=== PATIENT | male | born 1990 | race Caucasian/White ===

== ENCOUNTER 2023-01-14 17:48 | Emergency (ER) | payer OTHER ==
[~2023-01-14] VITALS: Ht 180.3 cm; Wt 100.3 kg
[2023-01-14] MEDS ORDERED: INSLANTI SC (19:15)
[2023-01-14 19:34] LABS: Urine Bacteria NONE SEEN /hpf (None Seen); Urine Blood Negative /uL (Negative); Urine Clarity Clear (Clear); Urine Color Colorless (Yellow); Urine Protein, UAD 1+ (Negative); Urine Specific Gravity 1.021 (1.001-1.035); Urine Urobilinogen Normal (Negative); Urine WBC <1 /hpf (0 - 3); Urine pH 5.5 (5.0-8.0)
[2023-01-14 20:19] VITALS: BP 144/90; PULSE 94; RESP 19; TEMP 98.3; O2SAT 95
== END 2023-01-14 20:21 | disposition home or self-care (01) ==
LOC: ER 17:48
DX: E11.65 Type 2 diabetes mellitus with hyperglycemia (principal); Z76.0 Encounter for issue of repeat prescription
CPT/HCPCS: 81001

== ENCOUNTER 2023-05-01 12:32 | Inpatient (IN) | payer MEDICAID ==
[~2023-05-01] VITALS: Ht 175.3 cm; Wt 100.0 kg
[~2023-05-01 12:32] MED LIST: INSLANTI SC
[2023-05-01 13:49] LABS: Alanine Aminotransferase 21 U/L (7-40); Albumin 4.5 g/dL (3.2-4.8); Alkaline Phosphatase 59 U/L (46-116); Anion Gap 5 (5-15); Aspartate Aminotransferase 16 U/L (13-40); BUN/Creatinine Ratio 11.1 (10.0-20.0); Bilirubin, Total 1.2 mg/dL (0.2-1.0); Blood Urea Nitrogen 13 mg/dL (9-23); Calcium 9.6 mg/dL (8.7-10.4); Carbon Dioxide 29 mmol/L (20-30); Chloride 102 mmol/L (98-107); Glucose 277 mg/dL (74-106); Lipase 31 U/L (12-53); Potassium 4.6 mmol/L (3.5-5.1); Sodium 136 mmol/L (136-145); Total Protein 7.4 g/dL (5.7-8.2)
[2023-05-01 13:50] LABS: Basophils # (auto) 0.1 10 ^3/uL (0-0.2); Basophils % (auto) 0.6 % (0.0-2.0); Eosinophils # (auto) 0.3 10 ^3/uL (0-0.8); Eosinophils % (auto) 2.5 % (0.0-7.0); Hematocrit 43.8 % (41.0-53.0); Hemoglobin 14.7 g/dL (13.5-17.5); Lymphocytes # (auto) 1.1 10 ^3/uL (0.4-5.4); Lymphocytes % (auto) 10.7 % (10.0-50.0); Mean Corpuscular Hemoglobin 29.8 pg (28.0-32.0); Mean Corpuscular Hgb Conc. 33.6 g/dL (32.0-36.0); Mean Corpuscular Volume 88.7 fL (80.0-100.0); Monocytes # (auto) 0.7 10 ^3/uL (0-1.3); Monocytes % (auto) 6.2 % (0.0-12.0); Neutrophils # (auto) 8.5 10 ^3/uL (1.6-8.6); Red Blood Cells 4.94 10^6/uL (4.5-5.90); Red Cell Distribution Width 13.5 % (11.8-14.3); White Blood Cell 10.6 10^3/uL (4.4-10.8)
[2023-05-01 14:04] LABS: INR 0.97 (0.9-1.15); Partial Thromboplastin Time 27.1 SEC (24.5-34.5); Prothrombin Time 10.2 sec (9.3-11.8)
[2023-05-01 14:14] LABS: Urine Bacteria NONE SEEN /hpf (None Seen); Urine Blood TRACE /uL (Negative); Urine Clarity Clear (Clear); Urine Color Yellow (Yellow); Urine Protein, UAD 2+ (Negative); Urine Specific Gravity 1.028 (1.001-1.035); Urine Urobilinogen Normal (Negative); Urine WBC <1 /hpf (0 - 3); Urine pH 6.5 (5.0-8.0)
[2023-05-01] MEDS: IOHEXOL 300 MG/ML 100ML BOTTLE IJ ONE (14:18)
[2023-05-01 14:26] LABS: Amphetamine Screen, Urine Neg (NEGATIVE)
[2023-05-01 14:27] LABS: Barbiturate Scree,Urine Neg (NEGATIVE); Benzodiazephine Screen, Urine Neg (NEGATIVE); Cannabinoid Screen, Urine Neg (NEGATIVE); Cocaine Screen, Urine Neg (NEGATIVE); Opiate Scree,Urine Neg (NEGATIVE); Phencyclidine Screen, Urine Neg (NEGATIVE)
[2023-05-01] MEDS: SODIUM CHLORIDE 0.9% 1,000 ML IV ONE (14:39)
[2023-05-01] MEDS: SODIUM CHLORIDE 0.9% 500 ML IVB ONE (14:40)
[2023-05-01] MEDS: METOCLOPRAMIDE HCL 5MG/ml INJ 2ml VIAL IV ONE (14:44)
[2023-05-01] MEDS: HYDROmorphone HCL 2 MG/ML VL/or syr IV ONE (14:45)
[2023-05-01] MEDS: cefTRIAXone 1GM/50ML D5W 50 ML IV ONE (15:30)
[2023-05-01] MEDS: metroNIDAZOLE 500MG/100ML 100 ML IV ONE (15:30)
[2023-05-01] MEDS ORDERED: MORPHINE SULFATE INJ 2 MG/ml SYRG IV PRN (15:45)
[2023-05-01] MEDS ORDERED: SODIUM CHLORIDE 0.9% 1,000 ML IV SCH (15:45)
[2023-05-01] MEDS ORDERED: DEXTROSE (50%) 50ML SYRG IV PRN (15:45)
[2023-05-01] MEDS: PANTOPRAZOLE 40 MG/10 ML VIAL INJ IV ONE (15:54)
[2023-05-01] MEDS: ONDANSETRON HCL 4 MG/2 ML VIAL IV PRN (15:54)
[2023-05-01] MEDS: InsuLIN REG 1unit/0.01ml Soln (100units/ml) SC SCH (17:00)
[2023-05-01] MEDS: ACCU-CHEK COMFORT CURVE STRIP VI SCH (17:00)
[2023-05-01 19:30] VITALS: PULSE 86; RESP 14; O2SAT 98
[2023-05-01 21:19] LABS: INR 1.01 (0.9-1.15); Prothrombin Time 10.6 sec (9.3-11.8)
[2023-05-01] MEDS: metroNIDAZOLE 500MG/100ML 100 ML IV SCH (21:55)
[2023-05-01 22:32] VITALS: BP 121/67; PULSE 74; RESP 18; TEMP 99.1; O2SAT 96
[2023-05-01 23:13] VITALS: BP 121/67; PULSE 74; RESP 18; TEMP 99.1; O2SAT 95
[2023-05-02] VITALS (7 sets, daily range): BP systolic 108–121; BP diastolic 56–73; PULSE 72–76; RESP 16–19; TEMP 97.7–98.6; O2SAT 0–100
[2023-05-02] MEDS: SUCCINYLCHOLINE CHLORIDE 20 MG/ML 10ML VIAL IV ONE (07:15)
[2023-05-02] MEDS ORDERED: MIDAZOLAM HCL 2MG/2ML 2ml VIAL (1mg/ml) ONE (07:18)
[2023-05-02] MEDS ORDERED: fentaNYL CITRATE 100 MCG/2 ML VL ONE (07:18)
[2023-05-02] MEDS ORDERED: MEPERIDINE HCL (50 MG/ML) 1 ML VIAL ONE (07:18)
[2023-05-02] MEDS: BUPIVACAINE 0.25% INJ 50ML VIAL ONE (07:50)
[2023-05-02] MEDS: LIDOCAINE W/ EPINEPHRINE 1% 20ML VIAL ONE (07:50)
[2023-05-02] MEDS ORDERED: DexAMETHasone SOD PHOS 10MG/1ML VIAL INJ ONE (07:54)
[2023-05-02] MEDS ORDERED: PROPOFOL 10 MG/ML 20 ML IV ONE (07:54)
[2023-05-02] MEDS ORDERED: ROCURONIUM 10MG/ML 10ML VIAL IV ONE (07:54)
[2023-05-02] MEDS: cefTRIAXone 1GM/50ML D5W 50 ML IV SCH (09:00)
[2023-05-02 09:16] LABS: Basophils # (auto) 0 10 ^3/uL (0-0.2); Basophils % (auto) 0.2 % (0.0-2.0); Eosinophils # (auto) 0.2 10 ^3/uL (0-0.8); Eosinophils % (auto) 1.9 % (0.0-7.0); Lymphocytes # (auto) 0.7 10 ^3/uL (0.4-5.4); Lymphocytes % (auto) 5.4 % (10.0-50.0); Mean Corpuscular Hgb Conc. 33.3 g/dL (32.0-36.0); Mean Corpuscular Volume 90.1 fL (80.0-100.0); Monocytes # (auto) 0.5 10 ^3/uL (0-1.3); Monocytes % (auto) 3.9 % (0.0-12.0); Neutrophils # (auto) 11.9 10 ^3/uL (1.6-8.6); Neutrophils % (auto) 88.6 % (37.0-80.0); Red Blood Cells 4.33 10^6/uL (4.5-5.90); Red Cell Distribution Width 13.3 % (11.8-14.3); White Blood Cell 13.4 10^3/uL (4.4-10.8)
[2023-05-02 09:32] LABS: Alanine Aminotransferase 15 U/L (7-40); Albumin 3.6 g/dL (3.2-4.8); Alkaline Phosphatase 48 U/L (46-116); Anion Gap 5 (5-15); Aspartate Aminotransferase < 8 U/L (13-40); BUN/Creatinine Ratio 13.1 (10.0-20.0); Blood Urea Nitrogen 13 mg/dL (9-23); Calcium 8.8 mg/dL (8.5-10.1); Carbon Dioxide 25 mmol/L (20-30); Chloride 105 mmol/L (98-107); Glucose 255 mg/dL (74-106); Potassium 4.4 mmol/L (3.5-5.1); Sodium 135 mmol/L (136-145)
[2023-05-02 09:33] LABS: Total Protein 5.8 g/dL (5.7-8.2)
[2023-05-02] MEDS: ceFAZolin 2 GM/D5W100ml 100 ML IV ONE (10:00)
[2023-05-02] MEDS: PANTOPRAZOLE 40 MG/10 ML VIAL INJ IV SCH (10:38)
[2023-05-02] MEDS: SODIUM CHLORIDE 0.9% 1,000 ML IV SCH (13:00)
[2023-05-02] MEDS: ACETAMINOPHEN 325 MG TAB PO PRN (22:14)
[2023-05-02] MEDS: INSULIN LANTUS (GLARGINE) 1 /0.01ml (100units/ml) SC SCH (22:17)
[2023-05-03 05:00] VITALS: BP 115/48; PULSE 76; RESP 16; TEMP 98.1; O2SAT 96
[2023-05-03 08:00] VITALS: O2SAT 98
[2023-05-03 08:14] LABS: Chloride 106 mmol/L (98-107); Potassium 4.4 mmol/L (3.5-5.1); Sodium 136 mmol/L (136-145)
[2023-05-03 08:15] LABS: Anion Gap 5 (5-15); Calcium 8.9 mg/dL (8.5-10.1); Carbon Dioxide 25 mmol/L (20-30)
[2023-05-03 08:20] LABS: BUN/Creatinine Ratio 16.3 (10.0-20.0); Blood Urea Nitrogen 15 mg/dL (9-23); Glucose 223 mg/dL (74-106)
[2023-05-03 08:22] LABS: Basophils # (auto) 0 10 ^3/uL (0-0.2); Basophils % (auto) 0.4 % (0.0-2.0); Eosinophils # (auto) 0.1 10 ^3/uL (0-0.8); Eosinophils % (auto) 1.5 % (0.0-7.0); Hematocrit 40.5 % (41.0-53.0); Hemoglobin 13.5 g/dL (13.5-17.5); Lymphocytes # (auto) 0.8 10 ^3/uL (0.4-5.4); Lymphocytes % (auto) 10.1 % (10.0-50.0); Mean Corpuscular Hemoglobin 30.1 pg (28.0-32.0); Mean Corpuscular Hgb Conc. 33.3 g/dL (32.0-36.0); Mean Corpuscular Volume 90.3 fL (80.0-100.0); Monocytes # (auto) 0.7 10 ^3/uL (0-1.3); Monocytes % (auto) 8.5 % (0.0-12.0); Neutrophils # (auto) 6.2 10 ^3/uL (1.6-8.6); Neutrophils % (auto) 79.5 % (37.0-80.0); Red Blood Cells 4.49 10^6/uL (4.5-5.90); Red Cell Distribution Width 13.3 % (11.8-14.3); White Blood Cell 7.8 10^3/uL (4.4-10.8)
[2023-05-03 12:57] VITALS: BP 118/60; PULSE 77; RESP 15; TEMP 98.9; O2SAT 100
[2023-05-03 17:09] VITALS: BP 135/83; PULSE 78; RESP 15; TEMP 98.4; O2SAT 97
[2023-05-03 21:53] VITALS: BP 152/95; PULSE 78; RESP 18; TEMP 98.2; O2SAT 95
[2023-05-04 05:27] VITALS: BP 121/57; PULSE 65; RESP 18; TEMP 97.5; O2SAT 94
[2023-05-04 07:26] LABS: Basophils # (auto) 0.1 10 ^3/uL (0-0.2); Basophils % (auto) 1.2 % (0.0-2.0); Eosinophils # (auto) 0.2 10 ^3/uL (0-0.8); Hematocrit 38.2 % (41.0-53.0); Lymphocytes # (auto) 1.2 10 ^3/uL (0.4-5.4); Lymphocytes % (auto) 28.9 % (10.0-50.0); Mean Corpuscular Hemoglobin 30.6 pg (28.0-32.0); Mean Corpuscular Hgb Conc. 33.9 g/dL (32.0-36.0); Mean Corpuscular Volume 90.2 fL (80.0-100.0); Monocytes # (auto) 0.7 10 ^3/uL (0-1.3); Monocytes % (auto) 17.2 % (0.0-12.0); Neutrophils # (auto) 2.1 10 ^3/uL (1.6-8.6); Neutrophils % (auto) 47.7 % (37.0-80.0); Red Blood Cells 4.24 10^6/uL (4.5-5.90); Red Cell Distribution Width 13.4 % (11.8-14.3); White Blood Cell 4.3 10^3/uL (4.4-10.8)
[2023-05-04 07:47] LABS: Anion Gap 5 (5-15); Carbon Dioxide 27 mmol/L (20-30); Chloride 108 mmol/L (98-107); Potassium 3.8 mmol/L (3.5-5.1); Sodium 140 mmol/L (136-145)
[2023-05-04 07:49] LABS: Calcium 8.4 mg/dL (8.5-10.1)
[2023-05-04 07:53] LABS: BUN/Creatinine Ratio 14.4 (10.0-20.0); Blood Urea Nitrogen 13 mg/dL (9-23); Glucose 232 mg/dL (74-106)
[2023-05-04 08:00] VITALS: BP 140/92; PULSE 81; RESP 20; TEMP 97.9; O2SAT 99
[2023-05-04] MEDS ORDERED: LEVO500T91 PO (08:40)
[2023-05-04 09:00] VITALS: BP 149/104; PULSE 87; RESP 20; TEMP 97.9; O2SAT 99
[2023-05-04 11:13] VITALS: BP 140/92; PULSE 81; RESP 20; TEMP 97.9; O2SAT 99
== END 2023-05-04 11:50 | disposition home or self-care (01) | DRG 234 ==
LOC: ER 12:32 → OVERFLOW 15:42 → WEST WING 22:08
PROVIDERS: ADMIT Internal Medicine; ATTEND Internal Medicine
PROC: 0DTJ4ZZ Resection of Appendix, Percutaneous Endoscopic Approach (ICD-10-PCS; principal; 2023-05-02 07:24)
DX: K35.80 Unspecified acute appendicitis (principal); E11.65 Type 2 diabetes mellitus with hyperglycemia; E66.9 Obesity, unspecified; Z68.32 Body mass index [BMI] 32.0-32.9, adult; Z79.4 Long term (current) use of insulin
CPT/HCPCS: 36415; 71046; 74177; 80048; 80053; 80307; 81001; 82962; 83036; 83690; 83735; 85025; 85610; 85730; 86850; 86900; 86901; C9113; G0378; J0330; J1100; J1815; J2250; J2405; J2704; J3490

== ENCOUNTER 2024-04-07 10:51 | Emergency (ER) | payer MEDICAID ==
[~2024-04-07] VITALS: Ht 180.3 cm; Wt 88.8 kg
[~2024-04-07 10:51] MED LIST changes: +LEVO500T91 PO
[2024-04-07 12:56] VITALS: BP 138/86; PULSE 87; RESP 14; TEMP 97.5; O2SAT 99
--- NOTE | 2024-04-07 13:11 | ED.PDOC ---
History of Present Illness(SKN HPI Comments A 34 YEAR OLD MALE PRESENTS TO THE ED WITH COMPLAINT OF REDNESS IN BETWEEN LEFT 4TH AND 5TH TOES. PATIENT STATES HE HAS BEEN EXPERIENCING REDNESS, PAIN, AND A MILD BLISTER IN BETWEEN HIS 4TH AND 5TH TOES OF HIS LEFT FOOT. PATIENT NOTES THAT HE IS DIABETIC. PATIENT DENIES FEVER, CHILLS, SHORTNESS OF BREATH, CHEST PAIN, ABDOMINAL PAIN, NAUSEA, VOMITING, HEADACHE, OR OTHER COMPLAINTS. NO OTHER SYMPTOMS OR MODIFYING FACTORS AT THIS TIME. PATIENT IS ALERT, ORIENTED X 4, AND HAS STEADY GAIT. Chief Complaint: Wound Check Time Seen by MD: 11:16 Primary Care Provider: [facility] History of Present Illness: Nurses Notes, Medications, Allergies Allergies: Coded Allergies: NO KNOWN ALLERGIES (Unverified , 01/14/23) Home Meds Active Scripts Naproxen (Naproxen) 500 Mg Tab, 500 MG PO BID, #30 TAB Prov:RAYMON PINEDA 04/07/24 Cephalexin Monohydrate (Cephalexin) 500 Mg Cap, 1 CAP PO QID, #40 CAP Prov:RAYMON PINEDA 04/07/24 Levofloxacin Hemihydrate (LEVOFLOXACIN) 500 Mg Tab, 1 TAB PO DAILY for 7 Days, #7 TAB Prov:CLAUDIA CRISTOBAL RESIDENT 05/04/23 Insulin Glargine (Lantus) 100 Unit/Ml Inj, 100 UNIT SC DAILY, #5 ML Prov:MADELYN HOLCOMB PAC 01/14/23 Information Source: Patient Mode of Arrival: Ambulatory Severity: Moderate Timing: Days Duration: Since onset, Days Prehospital treatment: None Location: Foot (FOOT) Mechanism: Spontaneous Onset Occurence: Indoors Object: None Condition of Object: None Retained Foreign Body: No Wound Type: Other (BLISTER) Immunization Status of Animal: NA Tetanus: Unknown History of: None Associated Signs and Symptoms: Redness, Pain Past Medical History PAST MEDICAL HISTORY: DM Surgical History: Denies all surgeries Family History Family History: Reviewed,noncontributory to illness, No family hx of Cancer, No family hx of DM, No family hx of Heart troy, No family hx of HTN, No family hx ofKidney troy, No family hx of Liver troy, No family hx of Lung troy, No family hx of Stroke Social History Smoker: Non-Smoker Alcohol: Denies ETOH Use Drugs: Denies Drug Use Lives In: Home Constitutional: denies: chills, diaphoresis, fatigue, fever, malaise, sweats, weakness, others EENTM: denies: blurred vision, double vision, ear bleeding, ear discharge, ear drainage, ear pain, ear ringing, eye pain, eye redness, hearing loss, mouth pain, mouth swelling, nasal discharge, nose bleeding, nose congestion, nose pain, photophobia, tearing, throat pain, throat swelling, voice changes, others Respiratory: denies: cough, hemoptysis, orthopnea, SOB at rest, shortness of breath, SOB with excertion, stridor, wheezing, others Cardiovascular: denies: chest pain, dizzy spells, diaphoresis, Dyspnea on exertion, edema, irregular heart beat, left arm pain, lightheadedness, palpitations, PND, syncope, others Gastrointestinal: denies: abdomen distended, abdominal pain, blood streaked bowels, constipated, diarrhea, dysphagia, difficulty swallowing, hematemesis, melena, nausea, poor appetite, poor fluid intake, rectal bleeding, rectal pain, vomiting, others Genitourinary: denies: burning, dysuria, flank pain, frequency, hematuria, incontinence, penile discharge, penile sore, pain, testicle pain, testicle swelling, urgency, others Neurological: denies: dizziness, fainting, headache, left sided numbness, left sided weakness, numbness, paresthesia, pre-existing deficit, right sided numbness, right sided weakness, seizure, speech problems, tingling, tremors, weakness, others Musculoskeletal: denies: back pain, gout, joint pain, joint swelling, muscle pain, muscle stiffness, neck pain, others Integumetry: reports: rash (LEFT FOOT ), others (TINEA PEDIS OF LEFT 4TH AND 5TH TOES); denies: bruises, change in color, change in hair/nails, dryness, laceration, lesions, lumps, wounds Allergic/Immunocompromised: denies: Difficulty Healing, Frequent Infections, Hives, Itching, others Hematologic/Lymphatic: denies: anemia, blood clots, easy bleeding, easy bruising, swollen glands, others Endocrine: denies: excessive hunger, excessive sweating, excessive thirst, excessive urination, flushing, intolerance to cold, intolerance to heat, unexplained weight gain, unexplained weight loss, others Psychiatric: denies: anxiety, bipolar disorder, depression, hopeless, panic disorder, schizophrenia, sleepless, suicidal, others All Other Systems: Reviewed and Negative Physical Exam General Appearance: No Apparent Distress, Normal HEENT: Normal ENT Inspection, PERRL/EOMI, Pharynx Normal, TMs Normal Neck: Full Range of Motion, Non-Tender, Normal, Normal Inspection Respiratory: Chest Non-Tender, Lungs Clear, No Accessory Muscle Use, No Respiratory Distress, Normal Breath Sounds Cardiovascular: No Edema, No JVD, No Murmur, No Gallop, Normal Peripheral Pul ses, Regular Rate/Rhythm Breast Exam: Deferred Gastrointestinal: No Organomegaly, Non Tender, No Pulsatile Mass, Normal Bowel Sounds, Soft Genitalia: Deferred Pelvic: Deferred Rectal: Deferred Extremities: No calf tenderness, Normal capillary refill, Normal range of motion, No pedal edema, Tender (WITH LOCALIZED REDNESS AND SWELLING ON LEFT 4TH AND 5TH TOES, MILD WHITE THICKENING SKIN RASH BETWEEN LEFT 4TH AND 5HT TOES REGION. ) Musculoskeletal : Apperance: Normal Neurologic: Alert, gravel weigher II-XII nml as Tested, No Motor Deficits, Normal Affect, Normal Mood, No Sensory Deficits Cerebellar Function: Normal Reflexes: Normal Skin: Dry, Rash (WITH REDNESS AND SWELLING ON LEFT DORSAL FOOT AND LEFT 4TH/5TH TOES REGION, NO OPEN WOUND SEEN. ), Warm Peripheral Pulses: 2+ carotid (R), 2+ carotid (L), 2+ dorsalis pedis (R), 2+ dorsalis pedis (L) Lymphatic: No Adenopathy Was a procedure done? Was a procedure done?: No Differential Diagnosis (INTG) Differential Diagnosis: N/A Differential Diagnosis: Atopic dermatitis, Cellulitis, Contact Dermatitis, Erysipelas, Tinea, Urticaria Differential Diagnosis: N/A Abscess: N/A Differential Diagnosis: N/A X-Ray, Labs, Meds, VS Vital Signs Date Time Temp Pulse Resp B/P (MAP) Pulse Ox O2 Delivery O2 Flow Rate FiO2 04/07/24 12:56 97.5 87 14 138/86 (103) 99 97.5 04/07/24 12:56 87 14 99 Room Air 04/07/24 11:24 97.5 87 14 138/86 (103) 99 Lab Test 04/07/24 11:34 Range/Units POC Glucose 222 H 70-106 mg/dl Current Medications Medications (Trade) Dose Ordered Sig/Jennifer Route Start Time Stop Time Status Last Admin Ceftriaxone Sodium (Rocephin) 1,000 mg ONCE ONCE IM 04/07/24 13:15 04/07/24 13:16 DC 04/07/24 13:22 X-Ray, Labs, Meds, VS Comment EXTERNAL MEDICAL RECORDS REVIEWED: [NONE] INDEPENDENT HISTORIANS: [NONE] SOCIAL DETERMINANTS OF HEALTH: [NONE] LABS ORDERED: NONE REVIEWED AND INTERPRETED RESULTS: NONE IMAGING ORDERED: NONE TREATMENTS ORDERED: ROCEPHIN 1GM IM PROCEDURES PERFORMED: NONE CRITICAL CARE TIME: NONE I HAVE DISCUSSED THE PATIENT WITH THE ATTENDING PHYSICIAN DR. FRANCE AND HE AGREES WITH THE PATIENT'S PLAN OF CARE AND DISPOSITION. BASED ON HISTORY OF PRESENT ILLNESS, AND PHYSICAL EXAM, PATIENT WILL BE DISCHARGED HOME. DISCUSSED PLAN FOR DISCHARGE HOME WITH RX [KEFLEX]. MEDICATION WARNINGS GIVEN. SHARED DECISION MAKING: PATIENT INSTRUCTED TO FOLLOW UP WITH PRIMARY CARE PROVIDER IN 1-2 DAYS FOR RE-EVALUATION OF SYMPTOMS. PATIENT VERBALIZES UNDERSTANDING TO RETURN TO ED FOR NEW OR WORSENING SYMPTOMS OR IF FOLLOW UP WITH PCP CANNOT BE OBTAINED. PATIENT FEELS COMFORTABLE GOING HOME AT THIS TIME. ALL QUESTIONS ADDRESSED AT TIME OF DISCHARGE. Time of 1ST Reevaluation: 13:31 Reevaluation 1ST: Improved Patient Education/Counseling: Diagnosis, Treatment, Need For Follow Up Family Education/Counseling: Diagnosis, Treatment, Need For Follow Up Medical Screening: No EMC Exist At This Time Departure 1 Departure Time of Disposition: 13:31 Impression: Primary Impression: Tinea pedis Qualified Codes: B35.3 - Tinea pedis Additional Impression: Suspected soft tissue infection Disposition: 01 HOME / SELF CARE / HOMELESS Condition: Stable Additional Instructions: FOLLOW-UP WITH PCP IN 1 TO 2 DAYS. TAKE MEDICATIONS PRESCRIBED. RETURN TO ED FOR ANY NEW OR WORSENING SYMPTOMS. e-Prescriptions Naproxen (Naproxen) 500 Mg Tab 500 MG PO BID, #30 TAB Prov: RAYMON PINEDA 04/07/24 Cephalexin Monohydrate (Cephalexin) 500 Mg Cap 1 CAP PO QID, #40 CAP Prov: RAYMON PINEDA 04/07/24 Discharged With: Self Critical Care Note Critical Care Time?: No Stability Stability form required: No I personally scribed for RAYMON PINEDA ([email or web address]) on 04/07/24 at 13:11. Electronically submitted by Raffaele Anderson ([email or web address]). RAYMON PINEDA Apr 07, 2024 13:11
[2024-04-07] MEDS ORDERED: KETOROLAC TROMETH 60MG/2ML VIAL IM ONE (13:15)
[2024-04-07] MEDS: cefTRIAXone SOD 1,000 MG VL IM ONE (13:22)
[2024-04-07] MEDS ORDERED: CEPH500C PO (13:25)
[2024-04-07] MEDS ORDERED: NAPR-746 PO (13:25)
== END 2024-04-07 13:30 | disposition home or self-care (01) ==
LOC: ER 10:51
DX: B35.3 Tinea pedis (principal); E11.9 Type 2 diabetes mellitus without complications; Z79.899 Other long term (current) drug therapy
CPT/HCPCS: 82962; 96372; 99283; J0696

== ENCOUNTER 2024-08-02 01:50 | Emergency (ER) | payer MEDICAID ==
[~2024-08-02] VITALS: Ht 175.3 cm; Wt 68.0 kg
[~2024-08-02 01:50] MED LIST changes: +CEPH500C PO; +NAPR-746 PO
[2024-08-02 02:00] VITALS: BP 158/98; RESP 16; TEMP 97.8; O2SAT 98
[2024-08-02] MEDS ORDERED: SODIUM CHLORIDE 0.9% 1,000 ML IVB ONE (02:00)
[2024-08-02] MEDS ORDERED: InsuLIN REG 1unit/0.01ml Soln (100units/ml) SC ONE (02:00)
--- NOTE | 2024-08-02 02:01 | ED.PDOC ---
History of Present Illness HPI Comments 34 y/o M, with a history of DM type I, is BIBA for c/o dizziness and spotted vision after taking 2 out a packet of 4 erectile dysfunction pill, this morning. Patient reports on falling twice, without head injury or LOC. He was found with a blood glucose of 386, initially, on scene; endorses on taking his short-acting insulin, this morning, but has been without his long-acting variant since running out for 2 days. Denies any chest pain, shortness of breath, palpitations, or further associated symptoms. Time Seen by MD: 01:50 Primary Care Provider: [facility] Reviewed Notes: Nurses Notes, Air Brakes Inspector Notes, Medications, Allergies Allergies: Coded Allergies: NO KNOWN ALLERGIES (Unverified , 01/14/23) Home Meds Active Scripts Naproxen (Naproxen) 500 Mg Tab, 500 MG PO BID, #30 TAB Prov:RAYMON PINEDA 04/07/24 Cephalexin Monohydrate (Cephalexin) 500 Mg Cap, 1 CAP PO QID, #40 CAP Prov:RAYMON PINEDA 04/07/24 Levofloxacin Hemihydrate (LEVOFLOXACIN) 500 Mg Tab, 1 TAB PO DAILY for 7 Days, #7 TAB Prov:CLAUDIA CRISTOBAL RESIDENT 05/04/23 Insulin Glargine (Lantus) 100 Unit/Ml Inj, 100 UNIT SC DAILY, #5 ML Prov:MADELYN HOLCOMB PAC 01/14/23 Information Source: Patient, Emergency Med Personnel Mode of Arrival: EMS Severity: Moderate Timing: Minutes Duration: Since onset Prehospital treatment: 12 Lead EKG, Accucheck, Rehabilitation Consultant Past Medical History PAST MEDICAL HISTORY: DM (type I) Surgical History: Denies all surgeries Family History Family History: Reviewed,noncontributory to illness, No family hx of Cancer, No family hx of DM, No family hx of Heart troy, No family hx of HTN, No family hx ofKidney tryo, No family hx of Liver troy, No family hx of Lung troy, No family hx of Stroke Social History Smoker: Non-Smoker Alcohol: Denies ETOH Use Drugs: Denies Drug Use Lives In: Home All Other Systems: Reviewed and Negative (Comprehensive systems review obtained and negative except for what is stated in the HPI.) Physical Exam General Appearance: Mild Distress, Normal HEENT: Normal ENT Inspection, Pharynx Normal, TMs Normal Neck: Full Range of Motion, Non-Tender, Normal, Normal Inspection Respiratory: Chest Non-Tender, Lungs Clear, No Accessory Muscle Use, No Respiratory Distress, Normal Breath Sounds Cardiovascular: No Edema, No JVD, No Murmur, No Gallop, Normal Peripheral Pulses, Regular Rate/Rhythm Breast Exam: Deferred Gastrointestinal: No Organomegaly, Non Tender, No Pulsatile Mass, Normal Bowel Sounds, Soft Genitalia: Deferred Pelvic: Deferred Rectal: Deferred Extremities: No calf tenderness, Normal capillary refill, Normal inspection, Normal range of motion, Non-tender, No pedal edema Musculoskeletal : Apperance: Normal Neurologic: Alert, box repairer II-XII nml as Tested, No Motor Deficits, Normal Affect, Normal Mood, No Sensory Deficits Cerebellar Function: Normal Reflexes: Normal Skin: Dry, Normal Color, Warm Lymphatic: No Adenopathy Was a procedure done? Was a procedure done?: No EKG EKG : Pulse Rate (adult): 99 [place]: Normal Cardiac Rhythm: NSR Block: None Hypertrophy: None ST: Normal Differential Dx Considerations may include: hypertension, medication noncompliant, hyperglycemia, medication adverse effect, among others X-Ray, Labs, Meds, VS Vital Signs Date Time Temp Pulse Resp B/P (MAP) Pulse Ox O2 Delivery O2 Flow Rate FiO2 08/02/24 02:02 99 08/02/24 02:00 97.8 84 16 158/98 (118) 98 97.8 08/02/24 01:52 99 Lab Test 08/02/24 03:09 08/02/24 02:10 08/02/24 02:06 Range/Units Troponin I High Sensitivity 7 7 </=54 ng/L Blood Gas Specimen Type Venous Blood Gas Sample Site Vbg - n/a Blood Gas Patient Temperature 37.0 Arterial Blood Date Drawn [id number] Iraj Test N/a Venous Blood pH 7.411 7.320-7.430 Venous Blood pCO2 at Patient Temp 36.8 L 38.0-54.0 mmHg Venous Blood pO2 at Patient Temp 57.4 H 23.0-48.0 mmHg Venous Blood HCO3 22.9 22.0-29.0 mmol/L Venous Bld O2 Saturation (Measured) 88.2 H 60.0-85.0 % Venous Blood Base Excess -1.3 -2.0-3.0 mmol/L Venous Blood Total Hemoglobin 14.1 13.5-17.5 g/dL Venous Blood Oxyhemoglobin 87.8 H 0.0-79.0 % Venous Blood Carboxyhemoglobin 0.2 L 0.5-1.5 % Venous Blood Methemoglobin 0.3 0.0-1.5 % Blood Gas Modality Room air FiO2 % 21.0 White Blood Count 7.5 4.4-10.8 10^3/uL Red Blood Count 4.67 4.5-5.90 10^6/uL Hemoglobin 13.8 13.5-17.5 g/dL Hematocrit 40.2 L 41.0-53.0 % Mean Corpuscular Volume 86.3 80.0-100.0 fL Mean Corpuscular Hemoglobin 29.5 28.0-32.0 pg Mean Corpuscular Hemoglobin Concent 34.2 32.0-36.0 g/dL Red Cell Distribution Width 13.7 11.8-14.3 % Platelet Count 337 140-450 10^3/uL Mean Platelet Volume 7.6 6.9-10.8 fL Neutrophils (%) (Auto) 59.1 37.0-80.0 % Lymphocytes (%) (Auto) 24.2 10.0-50.0 % Monocytes (%) (Auto) 10.6 0.0-12.0 % Eosinophils (%) (Auto) 5.0 0.0-7.0 % Basophils (%) (Auto) 1.1 0.0-2.0 % Neutrophils # (Auto) 4.5 1.6-8.6 10 ^3/uL Lymphocytes # (Auto) 1.8 0.4-5.4 10 ^3/uL Monocytes # (Auto) 0.8 0-1.3 10 ^3/uL Eosinophils # (Auto) 0.4 0-0.8 10 ^3/uL Basophils # (Auto) 0.1 0-0.2 10 ^3/uL Nucleated Red Blood Cells 0.2 % Sodium Level 135 L 136-145 mmol/L Potassium Level 4.1 3.5-5.1 mmol/L Chloride Level 101 98-107 mmol/L Carbon Dioxide Level 25 20-31 mmol/L Anion Gap 9 5-15 Blood Urea Nitrogen 24 H 9-23 mg/dL Creatinine 1.17 0.700-1.30 mg/dL Glomerular Filtration Rate Calc 83 >90 mL/min BUN/Creatinine Ratio 20.5 H 10.0-20.0 Serum Glucose 414 *H 74-106 mg/dL Calcium Level 9.3 8.7-10.4 mg/dL Magnesium Level 2.5 1.6-2.6 mg/dL Total Bilirubin 0.5 0.2-1.0 mg/dL Aspartate Amino Transferase (AST) 24 13-40 U/L Alanine Aminotransferase (ALT) 30 7-40 U/L Alkaline Phosphatase 68 46-116 U/L Total Protein 7.2 5.7-8.2 g/dL Albumin 4.5 3.2-4.8 g/dL Time of 1ST Reevaluation: 02:20 Reevaluation 1ST: Unchanged Patient Education/Counseling: Diagnosis, Treatment, Need For Follow Up Family Education/Counseling: No Family Present Departure 1 Departure Time of Disposition: 04:44 Impression: Primary Impression: Abdominal pain Disposition: 07 LEFT AWOL/ELOPED Condition: Guarded Discharged With: Self Critical Care Note Critical Care Time?: No Stability Stability form required: No Heart Score Heart Score: Heart Score Response (Comments) Value History N/A 0 EKG N/A 0 Age N/A 0 Risk Factors N/A 0 Troponin N/A 0 Total 0 I personally scribed for CHAO MARTINEZ MD ([email or web address]) on 08/02/24 at 02:01. Electronically submitted by Rosas Peacock ([email or web address]). I personally scribed for CHAO MARTINEZ MD ([email or web address]) on 08/02/24 at 02:02. Electronically submitted by Rosas Peacock ([email or web address]). CHAO MARTINEZ MD August 02, 2024 02:01
[2024-08-02 02:02] VITALS: PULSE 99
[2024-08-02 02:18] LABS: Basophils # (auto) 0.1 10 ^3/uL (0-0.2); Basophils % (auto) 1.1 % (0.0-2.0); Eosinophils # (auto) 0.4 10 ^3/uL (0-0.8); Hematocrit 40.2 % (41.0-53.0); Hemoglobin 13.8 g/dL (13.5-17.5); Lymphocytes # (auto) 1.8 10 ^3/uL (0.4-5.4); Lymphocytes % (auto) 24.2 % (10.0-50.0); Mean Corpuscular Hemoglobin 29.5 pg (28.0-32.0); Mean Corpuscular Hgb Conc. 34.2 g/dL (32.0-36.0); Mean Corpuscular Volume 86.3 fL (80.0-100.0); Monocytes # (auto) 0.8 10 ^3/uL (0-1.3); Monocytes % (auto) 10.6 % (0.0-12.0); Neutrophils # (auto) 4.5 10 ^3/uL (1.6-8.6); Neutrophils % (auto) 59.1 % (37.0-80.0); Nucleated Red Blood Cells % 0.2 %; Platelet Count (auto) 337 10^3/uL (140-450); Red Blood Cells 4.67 10^6/uL (4.5-5.90); Red Cell Distribution Width 13.7 % (11.8-14.3); White Blood Cell 7.5 10^3/uL (4.4-10.8)
[2024-08-02 02:40] LABS: Alanine Aminotransferase 30 U/L (7-40); Albumin 4.5 g/dL (3.2-4.8); Alkaline Phosphatase 68 U/L (46-116); Anion Gap 9 (5-15); Aspartate Aminotransferase 24 U/L (13-40); BUN/Creatinine Ratio 20.5 (10.0-20.0); Bilirubin, Total 0.5 mg/dL (0.2-1.0); Calcium 9.3 mg/dL (8.7-10.4); Carbon Dioxide 25 mmol/L (20-31); Chloride 101 mmol/L (98-107); Magnesium 2.5 mg/dL (1.6-2.6); Potassium 4.1 mmol/L (3.5-5.1); Total Protein 7.2 g/dL (5.7-8.2)
[2024-08-02 02:50] LABS: Sodium 135 mmol/L (136-145)
[2024-08-02 02:51] LABS: Blood Urea Nitrogen 24 mg/dL (9-23)
[2024-08-02 02:53] LABS: Glucose 414 mg/dL (74-106)
--- NOTE | 2024-08-02 03:21 | ECG ---
[facility] Test Date: 2024-08-02 Test Time: 01:52:22 Pat Name: FOX GRIFFITHS Department: ED Room: Gender: M Director Of Learning: jaskaran : 1990 Requested By: CHAO MARTINEZ Order Number: [id number] Reading MD: Binh Hernandez Measurements Intervals Bruce Rate: 99 P: 75 NV: 150 QRS: 86 QRSD: 96 T: 52 QT: 353 QTc: 453 Interpretive Statements Sinus rhythm Probable left ventricular hypertrophy Baseline wander in lead(s) III,aVF Electronically Signed On 08-02-2024 12:49:13 PDT by Binh Hernandez Please click the below link to view image of tracing.
[2024-08-02] MEDS ORDERED: INSLANTI SC (05:59)
== END 2024-08-02 09:34 | disposition home or self-care (01) ==
LOC: ER 01:50 → EDBD 01:50 → ER 09:34
DX: R10.9 Unspecified abdominal pain (principal); E10.9 Type 1 diabetes mellitus without complications
CPT/HCPCS: 36415; 36600; 80053; 82805; 82947; 83735; 84484; 85025; 93005